=== PATIENT | female | born 1980 | race Hispanic/Latino ===

== ENCOUNTER 2017-12-24 16:04 | Emergency (ER) | payer OTHER ==
[~2017-12-24] VITALS: Ht 162.6 cm; Wt 72.1 kg
[~2017-12-24 16:04] MED LIST: CYCLOBENZAPRINE10 MG PO
[2017-12-24 16:39] LABS: ABSOLUTE BASOPHIL COUNT 0 /CUMM (0.0-0.2); ABSOLUTE EOSINOPHIL COUNT 0.1 /CUMM (0.0-0.7); ABSOLUTE GRANULOCYTE CT 7.8 /CUMM (1.4-6.5); ABSOLUTE LYMPH COUNT 1.5 /CUMM (1.2-3.4); ABSOLUTE MONOCYTE COUNT 0.5 /CUMM (0.10-0.60); BASOPHIL % 0.4 % (0.0-2.0); EOSINOPHIL % 1.4 % (0-5); GRANULOCYTE % 77.9 % (42.2-75.2); HEMATOCRIT 38.9 % (37-47); MEAN CORPUSCULAR HGB 27.4 PG (27.0-31.0); MEAN CORPUSCULAR HGB CONC 32.9 G/DL (33.0-37.0); MEAN CORPUSCULAR VOLUME 83.4 FL (81.0-99.0); MEAN PLATELET VOLUME 9.1 FL (7.4-10.4); PLATELET COUNT 319 /CUMM (130-400); RBC DISTRIBUTION WIDTH 14.9 % (11.5-14.5); RED BLOOD CELL CT 4.67 /CUMM (4.20-5.40); WHITE BLOOD CELL COUNT 10.1 /CUMM (4.8-10.8)
--- NOTE | 2017-12-24 17:26 | ED GI/GU/ABDOMINAL COMPLAINT ---
History of Present Illness General Chief Complaint: Abdominal Pain/Flank Pain Stated Complaint: ABD PAIN POST BARIATRIC SLEEVE JULY 2017 Source: patient Exam Limitations: no limitations Vital Signs & Intake/Output Vital Signs & Intake/Output Vital Signs Date Time Temp Pulse Resp B/P B/P Pulse O2 O2 Flow FiO2 Mean Ox Delivery Rate 12/25 1999 97.8 62 18 130/74 96 Room Air 12/24 1616 97.0 64 18 131/80 99 Room Air ED Intake and Output 12/25 0000 12/24 1200 Intake Total 0 Output Total Balance 0 Intake, Oral 0 Patient 159 lb Weight Weight Reported by Patient Measurement Method Allergies Coded Allergies: NO KNOWN ALLERGIES (12/22/14) NKA PER ANTIBIOTIC ORDER SHEET OF 12/22/14 (S) Reconcile Medications CYCLOBENZAPRINE HCL (Cyclobenzaprine HCl) 10 MG TAB 1 TAB PO TID PRN PAIN ( Reported) Triage Note: PT STATES SHE IS HAVING A BURNING SENSTATION IN HER STOMACH SINCE YESTERDAY . PT STATES SHE BEGAN TO GET DIZZY WHILE TRYING TO MAKE FOOD. PT STATES SHE GOT DIAPHORETIC AND SWEAT WAS DRIPPING DOWN HER FACE. PT STATES THAT SHE TOOK A SHOWER AND THEY SHE WENT TO BED AND THE PAIN STARTED GOING AWAY. PT STATES THE PAIN HAS RETURNED AND SHE VOMITED. PT STATES SHE HAD A BARIATRIC SLEEVE PLACED IN JULY. Triage Nurses Notes Reviewed? yes ? N Is pt currently ? No Onset: Gradual Duration: day(s): Timing: recent history Quality/Severity: moderate Severity Numbers: 8 Location: epigastric HPI: 37-year-old female with history of gastric sleeve (07/2017) presents emergency department complaining of epigastric pain beginning yesterday after eating. She states that pain has been intermittent however worsening in intensity since onset. This morning when the patient woke up her pain was severe, she could not get out of bed. Currently pain described as epigastric burning, 01/04. Patient caught her pain may be related to constipation and she took an [id number] laxative, she had a bowel movement today after taking the medication. Patient also reports 2 episodes of vomiting and intermittent nausea today. Patient reports her urine appeared darker than normal. Patient states that yesterday after abdominal pain began she felt sweaty however this resolved after she relaxed in the air conditioning. She denies fevers, chills, sick contact, dysuria. (Flower Garcia) Past History Travel History Traveled to [place] past 21 day No Medical History Any Pertinent Medical History? see below for history Tetanus Vaccine: 08/14/15 Surgical History Surgical History: gastric sleeve 07/2017 Psychosocial History What is your primary language Danish Tobacco Use: Never used ETOH Use: denies use Illicit Drug Use: denies illicit drug use Family History Hx Contributory? No (Flower Garcia) Review of Systems Review of Systems Constitutional: Reports: no symptoms. EENTM: Reports: no symptoms. Respiratory: Reports: no symptoms. Cardiovascular: Reports: no symptoms. GI: Reports: see HPI. Genitourinary: Reports: see HPI. Musculoskeletal: Reports: no symptoms. Skin: Reports: no symptoms. Neurological/Psychological: Reports: no symptoms. Hematologic/Endocrine: Reports: no symptoms. Immunologic/Allergic: Reports: no symptoms. All Other Systems: Reviewed and Negative (Flower Garcia) Physical Exam Physical Exam General Appearance: well developed/nourished, no apparent distress, alert, awake Head: atraumatic, normal appearance Eyes: Bilateral: normal appearance. Ears, Nose, Throat, Mouth: hearing grossly normal Neck: normal inspection, supple, full range of motion Respiratory: normal breath sounds, no respiratory distress, lungs clear Cardiovascular: regular rate/rhythm Gastrointestinal: normal bowel sounds, soft, no organomegaly, epigatric and periumbilical tenderness Back: normal inspection, normal range of motion Extremities: normal range of motion Neurologic/Psych: awake, alert, oriented x 3 Skin: intact, normal color, warm/dry Core Measures ACS in differential dx? No Sepsis Present: No Sepsis Focused Exam Completed? No (Flower Garcia) Progress Differential Diagnosis: bowel obstruction, cholecystitis, gastritis, hernia, inflamm bowel dis, pancreatitis, peptic ulcer, PUD/GERD, SBO Plan of Care: Orders Procedure Date/time Status URINALYSIS 12/24 1742 Complete LACTIC ACID 12/24 162 Complete HUMAN BETA HCG SCREEN 12/24 162 Complete COMPREHENSIVE METABOLIC PANEL 12/24 162 Complete CBC WITHOUT DIFFERENTIAL 12/24 162 Complete Laboratory Tests 12/24/17 1926: Lactic Acid Cancelled 12/24/17 1800: Urine Color YEL, Urine Clarity CLEAR, Urine pH 6.0, Ur Specific [place] >= 1.030 , Urine Protein NEG, Urine Ketones 15 H, Urine Nitrite NEG, Urine Bilirubin NEG , Urine Urobilinogen 0.2, Ur Leukocyte Esterase NEG, Ur Microscopic SEDIMENT EXAMINED, Urine RBC 3-5, Urine WBC RARE, Ur Epithelial Cells FEW, Urine Crystals 1+ CA OX H, Urine Mucus FEW, Urine Hemoglobin TRACE-INTACT, Urine Glucose NEG 12/24/17 1631: Anion Gap 13, Estimated GFR > 60, BUN/Creatinine Ratio 21.7, Glucose 92, Lactic Acid 0.6 L, Calcium 9.7, Total Bilirubin 0.4, AST 16, ALT 27, Alkaline Phosphatase 91, Total Protein 7.6, Albumin 4.4, Globulin 3.2, Albumin/Globulin Ratio 1.4, Total Beta HCG NEGATIVE, CBC w Diff NO MAN DIFF REQ, RBC 4.67, MCV 83.4, MCH 27.4, MCHC 32.9 L, RDW 14.9 H, MPV 9.1, Gran % 77.9 H, Lymphocytes % 15.3 L, Monocytes % 5.0, Eosinophils % 1.4, Basophils % 0.4, Absolute Granulocytes 7.8 H, Absolute Lymphocytes 1.5, Absolute Monocytes 0.5, Absolute Eosinophils 0.1, Absolute Basophils 0 CT scan shows nonobstructive 4 mm kidney stone in lower pole kidney. Unlikely to be giving patient current burning sensation in her epigastric area. No other abnormality detected, normal surgical changes related to patient's gastric sleeve. Patient is already on Protonix via her GI doctor, Dr. Oconnor. 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 Will try GI cocktail now and have patient follow up with Dr. Oconnor tomorrow to discuss adding on new medication, possible carafate. She reports improvement in pain following GI cocktail. Patient sitting in stretcher in no acute distress, nontoxic appearing, vital signs are stable. She agrees with the plan of care. She was contracted her precautions which she agrees with. Diagnostic Imaging: Viewed by Me: CT Scan. Discussed w/RAD: CT Scan. Radiology Impression: PATIENT: HEIDY FRAZIER PRESENT AGE: 37 PATIENT ACCOUNT NO: [id number] : 78 LOCATION: [facility] ORDERING PHYSICIAN: Flower MCLAIN SERVICE DATE: 12/24/17-1750 EXAM TYPE: CAT - CT ABD & PELVIS W ORAL & IV CO EXAMINATION: CT ABDOMEN AND PELVIS WITH CONTRAST CLINICAL INFORMATION: Abdominal pain. Concern for obstruction. COMPARISON: 12/10/2014. TECHNIQUE: Contiguous axial thin section helical images of the abdomen and pelvis were performed following the administration of oral contrast and 95 mL of intravenous Optiray 320. The data set was reformatted in the coronal and sagittal planes and reviewed on an independent workstation. DLP: 323 mGy-cm. FINDINGS: The visualized lung bases are clear. The visualized portions of the heart are unremarkable. There are surgical chain sutures noted about the stomach indicative of prior surgery. The liver is of normal size and attenuation without focal lesions nor intrahepatic biliary ductal dilation. A normal gallbladder is identified. There is no wall thickening or discernible pericholecystic fluid. The spleen, pancreas, adrenal glands are unremarkable. Both kidneys are of normal size and attenuation without hydronephrosis. There is a 4 mm nonobstructive axis within the left lower pole. There is also a 2 mm calculus. Following the administration of IV contrast, prompt symmetric nephrograms are displayed. There is no abdominal free fluid. There is neither mesenteric nor retroperitoneal lymphadenopathy. Normal opacified loops of small and large bowel are identified. There is a small amount of likely physiologic pelvic free fluid. The urinary bladder is unremarkable. There is neither pelvic nor inguinal lymphadenopathy. Bone windows: Neither sclerotic nor lytic bone lesions are identified. IMPRESSION: No evidence for acute abdominal or pelvic inflammatory or infectious processes. Nonobstructive left lower pole renal calculi. DICTATED BY: Pedro Taylor MD DATE/TIME DICTATED:12/24/171934 MARKETING TRAFFIC COORDINATOR:MOISÉS DATE/TIME TRANSCRIBED:12/24/171934 CONFIDENTIAL, DO NOT COPY WITHOUT APPROPRIATE AUTHORIZATION. <Electronically signed in Other Vendor System> SIGNED BY: Pedro Taylor MD 12/24/171949 Initial ED EKG: none (Kristi MCLAIN,Flower Paula) Departure Departure Disposition: HOME OR SELF CARE Condition: Stable Clinical Impression Primary Impression: Abdominal pain Qualifiers: Abdominal location: epigastric Qualified Code: R10.13 - Epigastric pain Secondary Impressions: Kidney stone Referrals: Usha ISAACS,Adilson Snell (PCP/Family) Additional Instructions: Follow-up with Dr. Oconnor tomorrow. Continue Protonix. Asked about possibly starting a new medication such as Carafate. Return if any worsening symptoms or concerns. Please note that there might be incidental findings in your evaluation that are unrelated to the current emergency department visit. Please notify your primary care doctor about this emergency department visit in order to obtain and review all of the testing performed so that these incidental findings can be monitored as needed. If you had an x-ray performed, please understand that some fractures may not be seen on the initial set of x-rays. If your symptoms persist you might need a repeat set of x-rays to check for such a fracture. If you had a laceration evaluated, please understand that foreign bodies such as glass or wood may not be visible to the naked eye or on plain x-rays. If the wound becomes red, swollen, increasingly more painful or if there is any drainage from the wound, please have it reevaluated by a physician for the possibility of a retained foreign body. If you're unable to follow up as outlined in the discharge instructions please return to the emergency department. Thank you for choosing the [facility] Emergency Department for your care. It was a pleasure to serve you today. Departure Forms: Customer Survey General Discharge Information (Kristi MCLAIN,Flower Paula) PA/TRANSPORTATION CONSULTANT Co-Sign Statement Statement: ED Attending supervision documentation- [] I saw and evaluated the patient. I have also reviewed all the pertinent lab results and diagnostic results. I agree with the findings and the plan of care as documented in the PA's/TRANSPORTATION CONSULTANT's documentation. [x] I have reviewed the ED Record and agree with the PA's/TRANSPORTATION CONSULTANT's documentation. [] Additions or exceptions (if any) to the PAs/TRANSPORTATION CONSULTANT's note and plan are summarized below: [] (Carmela ISAACS,Rojelio Holt)
--- NOTE | 2017-12-24 19:50 | CT SCAN REPORT ---
EXAMINATION: CT ABDOMEN AND PELVIS WITH CONTRAST CLINICAL INFORMATION: Abdominal pain. Concern for obstruction. COMPARISON: 12/10/2014. TECHNIQUE: Contiguous axial thin section helical images of the abdomen and pelvis were performed following the administration of oral contrast and 95 mL of intravenous Optiray 320. The data set was reformatted in the coronal and sagittal planes and reviewed on an independent workstation. DLP: 323 mGy-cm. FINDINGS: The visualized lung bases are clear. The visualized portions of the heart are unremarkable. There are surgical chain sutures noted about the stomach indicative of prior surgery. The liver is of normal size and attenuation without focal lesions nor intrahepatic biliary ductal dilation. A normal gallbladder is identified. There is no wall thickening or discernible pericholecystic fluid. The spleen, pancreas, adrenal glands are unremarkable. Both kidneys are of normal size and attenuation without hydronephrosis. There is a 4 mm nonobstructive axis within the left lower pole. There is also a 2 mm calculus. Following the administration of IV contrast, prompt symmetric nephrograms are displayed. There is no abdominal free fluid. There is neither mesenteric nor retroperitoneal lymphadenopathy. Normal opacified loops of small and large bowel are identified. There is a small amount of likely physiologic pelvic free fluid. The urinary bladder is unremarkable. There is neither pelvic nor inguinal lymphadenopathy. Bone windows: Neither sclerotic nor lytic bone lesions are identified. IMPRESSION: No evidence for acute abdominal or pelvic inflammatory or infectious processes. Nonobstructive left lower pole renal calculi.
[2017-12-24 20:00] VITALS: BP 130/74
== END 2017-12-24 20:59 ==
LOC: ERH 16:04
PROVIDERS: Physician Assistant
DX: N20.0 Calculus of kidney (principal); R10.13 Epigastric pain; Z98.84 Bariatric surgery status
CPT/HCPCS: 74177; 81001; 96374

== ENCOUNTER → 2017-12-31 | Day surgery (SDC) | payer OTHER ==
[~2017-12-31] VITALS: Ht 162.6 cm; Wt 72.1 kg
--- NOTE | 2017-12-31 13:05 | Operative Report ---
Operative/Inv Procedure Report Surgery Date: 12/31/17 Name of Procedure: left ESWL Pre-Operative Diagnosis: left renal stone Post-Operative Diagnosis: same Estimated Blood Loss: scant Surgeon/Environmental Field Team Member: Liyah Chilel MD Anesthesia: local monitored anesthesi Complications: none Condition: stable Operative Indication: left renal stone with renal colic Operative/Procedure Note Note: 37yo female with a hx of kidney stones who developed left abd and epigastric pain over the weekend while at a cookout. She thought it was GI in nature as she has had a gastric sleeve 08/07/17. She had N/V/dizziness with the pain as well. She went to the ER and a CT scan revealed a 4mm and 2mm stone in the left kidney. She has had some urinary symptoms that are new as she generally has no issues with frequency, nocturia, urgency or dysuria. She has no voiding issues usually either but has had some issues. She has also noticed some wetness but also typically has no urinary incontinence. She has had ESWL in the past and wished to have this done to relieve her pain. She was given the risks, benefits and alternatives of the surgery in the office and holding area. consent was signed and she was marked on the left side. Patient was taken to the OR and placed in the supine position. She was optimally placed and time out was performed. The stone was easily identified in the LP. IV antibiotics were infused and IV sedation was begun. She had a total of 2500 shocks at a range of power 1-20. She tolerated the well and was transferred to the recovery room in stable condition. The stones were visibly changed at the end of the procedure. Findings: left renal stone in the LP visibly changed after ESWL Discharge Disposition: Same Day Admissions
== END ==
LOC: STS 03:49
DX: N20.0 Calculus of kidney (principal); Z87.442 Personal history of urinary calculi; Z98.84 Bariatric surgery status
CPT/HCPCS: 81025; J0690; J2250; J2405